=== PATIENT | male | born 1985 | race Caucasian/White ===

== ENCOUNTER 2022-06-03 19:09 | Emergency (ER) | payer MEDICAID, SELFPAY ==
[2022-06-03 19:10] VITALS: BP 143/99; PULSE 91; RESP 16; TEMP 37.2; O2SAT 97; BMI 33.7
--- NOTE | 2022-06-03 19:27 | ED.VIS.DENTA ---
HPI <LITO Farooq - Last Filed: 06/03/22 20:29> History of Present Illness Chief Complaint: Dental Narrative Narrative: Patient presents with dental pain in his right lower back molar for the last 4 to 5 days. He has had an issue with the same tooth before and it was filled but the filling fell out a few months ago. He had a telehealth visit and started taking ibuprofen and clindamycin over the last 3 days with no improvement. Today his jaw seemed more swollen with the pain radiating up to his ear. No difficulty swallowing or breathing. PFSH <LITO Farooq - Last Filed: 06/03/22 20:29> [facility] Home Medications prednisone 10 mg tablet 10 mg PO DAILY ##48 09/02/13 [Rx Last Taken Unknown] naproxen 500 mg tablet (Naprosyn) 500 mg PO BID PRN pain #20 tabs 06/03/22 [Rx Last Taken Unknown] penicillin V potassium 500 mg tablet 500 mg PO 4X/DAY #40 tabs 06/03/22 [Rx Last Taken Unknown] Allergy/AdvReac Type Severity Reaction Status Date / Time No Known Allergies Allergy Verified 06/03/22 19:10 Social History Smoking Status: Current every day smoker tobacco type: cigarettes ROS <LITO Farooq - Last Filed: 06/03/22 20:29> ROS ED ROS Narrative Constitutional: Negative for fever, chills, malaise. ENT: Positive for dental pain. Respiratory: Negative for shortness of breath. GI: Negative for nausea, vomiting. Neuro: Negative for headache. EXAM <LITO Farooq - Last Filed: 06/03/22 20:29> Physical Exam Narrative Exam Narrative: CONST: Patient sitting in no acute distress. EYES: Normal inspection. ENT: Moist mucous membranes, right lower posterior molar has caries and tenderness to palpation, no periapical abscess, swelling of his right lower jaw over this area with no fluctuance or crepitus. No trismus or tongue elevation, sublingual space is soft, airway patent with midline uvula. Handling secretions appropriately. NECK: Normal inspection. Trachea midline. RESP: No respiratory distress, CTAB. CVS: Regular rate and rhythm, no murmur, no gallop. SKIN: Color normal, no rash, warm, dry, intact. EXTREMITIES: Normal appearance, no pedal edema. NEURO: Oriented x4. PSYCH: Normal affect. Const Vital Signs: 06/03/22 19:10 Temperature 98.9 F Temperature Source Temporal Pulse Rate 91 Respiratory Rate 16 Blood Pressure 143/99 H Blood Pressure Mean 113 Pulse Ox 97 Oxygen Delivery Method Room Air <Dr. Lai Barroso DO - Last Filed: 06/03/22 21:46> Physical Exam Const Vital Signs: 06/03/22 19:10 Temperature 98.9 F Temperature Source Temporal Pulse Rate 91 Respiratory Rate 16 Blood Pressure 143/99 H Blood Pressure Mean 113 Pulse Ox 97 Oxygen Delivery Method Room Air [facility] <LITO Farooq - Last Filed: 06/03/22 20:29> [facility] Narrative Medical decision making narrative: History gathered from: Patient, significant other Patient has pain and caries in his right lower back molar. Its been filled but the filling fell out a few months ago. There is no periapical abscess or indication for I&D. There is mild facial swelling over the mandible there. Normal airway, handling secretions appropriately, speaking full sentences in no respiratory distress. Trachea midline. No signs of Elbert's angina. Since it has not improved on 3 days of clindamycin I will switch him to penicillin VK. First dose with a [place] were given here. Patient states he does not want narcotics for home. I I wrote naproxen but he was told to not take this if he is using ibuprofen. He was given a dental referral sheet and discharged in stable condition. Differential: Dental caries, dental abscess, Elbert's angina <Dr. Lai Barroso, DO - Last Filed: 06/03/22 21:46> [facility] Narrative Medical decision making narrative: History gathered from: Patient, significant other Patient has pain and caries in his right lower back molar. Its been filled but the filling fell out a few months ago. There is no periapical abscess or indication for I&D. There is mild facial swelling over the mandible there. Normal airway, handling secretions appropriately, speaking full sentences in no respiratory distress. Trachea midline. No signs of Elbert's angina. Since it has not improved on 3 days of clindamycin I will switch him to penicillin VK. First dose with a [place] were given here. Patient states he does not want narcotics for home. I I wrote naproxen but he was told to not take this if he is using ibuprofen. He was given a dental referral sheet and discharged in stable condition. Differential: Dental caries, dental abscess, Elbert's angina This patient was seen with a PA/VICE PRESIDENT UNDERWRITING Individually assessed they patient including history and physical. I have reviewed everything on the chart that is available and agree with the documentation provided by the PA/VICE PRESIDENT UNDERWRITING including discussion about the assessment, treatment plan, discussion, and return precautions. Patient with right lower molar pain. He states he has had problems with this tooth in the past. The dentist tried to place a filling which fell out. Its been causing him pain. He states he did make a dental appointment because he thought the antibiotics to make the pain go away. He is going to try to call Sunday now. No evidence of Ludewig's angina. Face is not significantly swollen. He has no trouble swallowing and breathing. He was given a [place] here. He was started on Pen-Vee K and states he was on clindamycin. He was given a dental referral sheet. Return precautions discussed. Discharge Plan Triage Chief Complaint: Dental ED Midlevel Provider: Arlen Johnson ED Provider: Lai Barroso Dx/Rx/DC Orders Clinical Impression: Dental abscess Instructions: Dental Abscess Prescriptions: New penicillin V potassium 500 mg tablet 500 mg PO 4X/DAY Qty: 40 0RF naproxen [Naprosyn] 500 mg tablet 500 mg PO BID PRN (Reason: pain) Qty: 20 0RF No Action prednisone 10 MG tablet 10 mg PO DAILY Qty: 48 0RF Rx Instructions: 6 po qd x 3 days, 4 po qd x 3 days, 2 po qd x 3 days, 1 po qd x 3 days Primary Care Provider: Care Physician,Kelly Primary Referrals: Care Physician,No Primary [Primary Care Provider] - Activity Restrictions/Additional Instructions: I prescribed Naprosyn for pain which you take twice a day. Do not take this with ibuprofen because they are the same class of drugs. You can add Tylenol 1000 mg every 6 hours as needed with it. Follow-up with the dentist. Disposition Disposition: Home, Self Care Discharge Date/Time: 06/03/22 20:02
[2022-06-03] MEDS: Penicillin Vk 250 MG Tablet 500 MG PO (19:40)
[2022-06-03] MEDS: HYDROcodone Bitartrate/Apap 5/325 Tablet PO (19:40)
== END 2022-06-03 20:02 | disposition home or self-care (01) ==
LOC: ED 19:39
PROVIDERS: Emergency Provider Student in an Organized Health Care Education/Training Program; Visit Provider Student in an Organized Health Care Education/Training Program
DX: K04.7 Periapical abscess without sinus (principal); F17.210 Nicotine dependence, cigarettes, uncomplicated
CPT/HCPCS: 99283